=== PATIENT | male | born 1960 | race Caucasian/White ===

== ENCOUNTER 2016-09-25 16:45 | Emergency (ER) | payer OTHER ==
[2016-09-25] MEDS ORDERED: TETANUS IMMUNE GLOBULIN/PF 250 UNIT SYRINGE IM ONE (17:29)
[2016-09-25] MEDS ORDERED: NORMAL SALINE 10 ML SYRINGE FLUSH IVP PRN (17:29)
[2016-09-25] MEDS ORDERED: Sodium Chloride 0.9% 1,000 ML PRIMARY IV ONE (17:29)
[2016-09-25 17:37] LABS: BASOPHILS # (AUTO) 0.02 10*3/UL; BASOPHILS % (AUTO) 0.3 % (0-1); EOSINOPHILS # (AUTO) 0.05 10*3/UL; EOSINOPHILS % (AUTO) 0.7 % (0-8); HEMATOCRIT 47.8 % (42.0-52.0); HEMOGLOBIN 16.7 g/dL (14.0-18.0); LYMPHOCYTES # (AUTO) 1.98 10*3/uL; MEAN CORPUSCULAR HEMOGLOBIN 32.1 PG (27-31); MEAN CORPUSCULAR HGB CONC 34.9 g/dL (33-37); MEAN CORPUSCULAR VOLUME 91.7 FL (80-90); MEAN PLATELET VOLUME 8.7 FL (7.4-12.2); MONOCYTES # (AUTO) 0.68 10*3/UL (0.3-0.8); NEUTROPHILS # (AUTO) 4.03 10*3/UL; NEUTROPHILS % (AUTO) 59.7 % (50-80); RED BLOOD COUNT 5.21 10^6/uL (4.70-6.10)
[2016-09-25 17:41] LABS: PLATELET MORPHOLOGY COMMENT NORMAL MORPHOLOGY (NORM); RBC MORPHOLOGY COMMENT NORMAL MORPHOLOGY (NORM); WBC MORPHOLOGY COMMENT NORMAL MORPHOLOGY (NORM)
[2016-09-25 17:43] LABS: BLOOD UREA NITROGEN 18 mg/dL (7-22); CALCIUM 9.2 mg/dL (8.7-10.7); EST GLOMERULAR FILTRATION > 60 (>60 ml/min/1.73m(2)); SERUM ALBUMIN 4.7 g/dL (3.5-4.8)
[2016-09-25 17:48] LABS: BILIRUBIN,URINE NEGATIVE (NEG); CLARITY,URINE CLEAR (CLEAR); COLOR,URINE YELLOW; GLUCOSE, URINE (UA) NEGATIVE (NEG); NITRATE,URINE NEGATIVE (NEG); OCCULT BLOOD,URINE NEGATIVE (NEG); PH,URINE 5.5 (5.0-8.5); PROTEIN,URINE NEGATIVE (NEG); UROBILINOGEN,URINE 0.2 EU/dL (0.2)
[2016-09-25] MEDS ORDERED: DIPH,PERTUSS,TET(ADACEL) VAC/PF 0.5 ML (Tdap) IM ONE (18:16)
--- NOTE | 2016-09-25 18:27 | DI ---
CT HEAD W/O CONTRAST,09/25/2016 5:30 PM: Clinical History: Trauma Previous Exam: None at this facility. Findings: Multiple helically acquired CT images are obtained through the brain without contrast, and demonstrat e normal, symmetric ventricles and other CSF containing spaces. There is a density noted within the l eft parietal overlying scalp. There is also some thickening of the soft tissues at this level. The paranasal sinuses are unremarkable. There are no fractures. . Impression: No acute intracranial pathology.
[2016-09-25 18:30] LABS: URINE SAMPLE TYPE CLEAN CATCH URINE
[2016-09-25] MEDS ORDERED: Lidocaine 1% 10 MG/ML - 20 ML VIAL SUBCUT ONE (18:30)
--- NOTE | 2016-09-25 18:32 | DI ---
CT CERVICAL SPINE W/O CONTRAST,09/25/2016 5:30 PM: Clinical History: Trauma Previous Exam: None at this facility. Findings: Multiple helically acquired CT images are obtained through the cervical spine without contrast, and d emonstrate anatomic alignment without fractures. Vertebral body height is preserved. There is mild lo ss of intervertebral disc height throughout with some uncovertebral joint osteophytes. Prevertebral s oft tissues are unremarkable. The lung apices are clear. Impression: Mild degenerative changes of the cervical spine without fractures.
[2016-09-25] MEDS ORDERED: Lidocaine Inj 1% 20 ML ONE (18:51)
[2016-09-25 19:34] VITALS: RESP 17; TEMP 97.2
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
== END 2016-09-25 19:36 | disposition home or self-care (01) ==
LOC: ER 16:45
DX: S01.81XA Laceration without foreign body of other part of head, initial encounter (principal); S51.012A Laceration without foreign body of left elbow, initial encounter; S00.83XA Contusion of other part of head, initial encounter; M54.2 Cervicalgia; V68.5XXA Driver of heavy transport vehicle injured in noncollision transport accident in traffic accident, initial encounter
CPT/HCPCS: 12002; 70450; 72125; 80053; 81003; 85025; 90471; 99283; J2001